=== PATIENT | female | born 1965 | race Asian ===

== ENCOUNTER 2022-09-09 21:14 | Emergency (ER) | payer BC, MEDICAID, SELFPAY ==
[2022-09-09 21:21] VITALS: BP 149/85; PULSE 86; RESP 16; TEMP 37; O2SAT 96
--- NOTE | 2022-09-09 22:14 | XRR_ITS ---
PROCEDURE INFORMATION: Exam: XR Right Foot Exam date and time: 09/09/2022 10:17 PM Age: 57 years old Clinical indication: Pain; Foot; Right; Additional info: Fourth toe pain and swelling TECHNIQUE: Imaging protocol: Radiologic exam of the right foot. Views: 3 or more views. COMPARISON: No relevant prior studies available. 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 Normal variant. Soft tissues: Normal. XR/XR foot RT min 3V* [id number] IMPRESSION: No acute findings.
--- NOTE | 2022-09-09 22:45 | W.ED.EXTPRO ---
HPI - Extremity Problem General: Chief complaint: Extremity Injury, Lower Stated complaint: Right pinky toe pain Time Seen by Provider: 09/09/22 22:13 History of Present Illness: Patient is a 57-year-old female that comes to the ED with right fourth toe pain and swelling. Symptoms started yesterday. Patient denies any injury to right foot or toe. She states that toe is very painful and she rates it a 9 out of 10. The pain radiates up her leg. Pain worsens with any pressure to toe. Denies any history of gout. Associated symptoms: Deny chest pain, fever(s) or rash Review of Systems Const: Denies: fever(s), chills or fatigue Eyes: Denies: change in vision or eye discomfort ENMT: Denies: throat pain, odynophagia, nasal discharge or nasal congestion Card: Denies: chest pain, palpitations, edema, swelling of feet/ankles, dyspnea on exertion or orthopnea Resp: Denies: dyspnea, productive cough or non-productive cough GI: Denies: abdominal pain, nausea, vomiting, diarrhea, constipation or hematochezia : Denies: flank pain, dysuria or hematuria Musc: Reports: extremity pain (Fourth toe right foot) and extremity swelling (Fourth toe right foot); Denies: neck pain or back pain Skin/Breast: Denies: rash or new lesions Neuro: Denies: headache(s), numbness in extremities or weakness in extremities PFS ED PFSH: Medical History (Updated 09/09/22 @ 23:16 by SALLY Rodriguez) Essential hypertension Surgical History (Updated 04/20/22 @ 08:52 by Donald Fajardo NP) Hx of section Family History (Updated 04/20/22 @ 08:53 by Donald Fajardo NP) Sister Stroke Father Gout Denies family history of Diabetes Hypertension Social History (Updated 04/20/22 @ 08:53 by Donald Fajardo NP) Smoking and tobacco status: never smoked Alcohol intake: never Physical Exam Const: COMMON NORMALS: no acute distress, patient oriented x3, healthy appearing and alert HENMT: COMMON NORMALS: normocephalic HEAD & SCALP: normocephalic MOUTH: Normal oral and palatal mucosa present THROAT: posterior oropharynx normal and uvula midline Neck/C-Spine: COMMON NORMALS: supple GENERAL: Yes normal visual inspection Resp: COMMON NORMALS: normal respiratory effort, No retractions, No use of accessory muscles and clear to auscultation bilaterally AUSCULTATION: clear to auscultation bilaterally Cardio: COMMON NORMALS: regular rate, regular rhythm, S1 normal heart sound present, S2 normal heart sound present, No gallops present (Cardio), No clicks present (Cardio), No murmurs present (Cardio) and Peripheral pulses 2+ throughout RATE: regular rate RHYTHM: regular rhythm HEART SOUNDS: S1 normal heart sound present and S2 normal heart sound present PERIPHERAL PULSES: Peripheral pulses 2+ throughout GI: COMMON NORMALS: Normal to inspection, nondistended, normoactive bowel sounds present, Soft to palpation, non-tender and no masses PALPATION: Yes Soft to palpation : COMMON NORMALS: Yes no CVA tenderness BLADDER/KIDNEY EXAM: Yes no CVA tenderness Back/Pelvis: COMMON NORMALS: no CVA tenderness Extremity: NARRATIVE EXTREMITY EXAM: Right foot?fourth toe?erythema warmth and swelling noted toe is very tender to palpation and even to light palpation. She does have some range of motion to toe but it is limited due to pain. Nail and nailbed appear normal and undamaged. No erythema or warmth seen into the foot or streaking up the leg. Findings suggestive of gout. GENERAL: Yes normal exam except as noted Neuro: COMMON NORMALS: patient oriented x3 SENSORIUM/ORIENTATION: Yes alert GAIT: Yes Normal gait present Skin: GENERAL SKIN EXAM: dry skin Course Vital Signs: Vital signs: Vital Signs Temperature 98.6 F 09/09/22 21:21 Pulse Rate 67 09/10/22 00:03 Respiratory Rate 18 09/10/22 00:03 Blood Pressure 150/89 09/10/22 00:03 Pulse Oximetry 96 09/10/22 00:03 Oxygen Delivery Me thod Room Air 09/09/22 22:58 MDM - Extremity (Nontraumatic) Medical Decision Making Patient is a 57-year-old female that comes to the ED with right fourth toe pain and swelling. Symptoms started yesterday. Patient denies any injury to right foot or toe. She states that toe is very painful and she rates it a 9 out of 10. The pain radiates up her leg. Pain worsens with any pressure to toe. Denies any history of gout. Right foot?fourth toe?erythema warmth and swelling noted toe is very tender to palpation and even to light palpation. She does have some range of motion to toe but it is limited due to pain. Nail and nailbed appear normal and undamaged. No erythema or warmth seen into the foot or streaking up the leg. Findings suggestive of gout. X-ray of right foot showed no acute findings. Patient was given a dose of hydrocodone, colchicine and Toradol here in the ED. She was stable for discharge home and diagnosed with gout. Patient was sent home with extra dose of colchicine and told to take it an hour after her first dose here in the ED. She was also sent home with a prescription for indomethacin, Medrol Dosepak and hydrocodone. She was also sent home with a prescription for antibiotic for possible secondary infection/cellulitis. Follow-up with PCP in the next week for reevaluation. Return to ED precautions given. Patient understood and agreed with plan. Lab Data Radiology Impressions Foot X-Ray 09/09/22 22:14 IMPRESSION: No acute findings. Discharge Plan Discharge Patient Disposition: Home Clinical Impression: Gout Qualifiers: Gout site: toe Gout etiology: unspecified cause Chronicity: acute Laterality: right Qualified Code(s): M10.9 - Gout, unspecified Condition: Stable Prescriptions: New indomethacin 50 mg capsule 50 mg PO TID PRN (Reason: pain) Qty: 30 0RF Rx Instructions: administer with food or milk cephalexin 500 mg capsule 500 mg PO Q6H 7 Days Qty: 28 0RF Medrol (Stefan) 4 mg tablets,dose pack See Rx Instructions .ROUTE .COMPLEX Qty: 21 0RF Rx Instructions: orally per package directions No Action hydrochlorothiazide 25 mg tablet 25 mg PO DAILY Qty: 90 3RF lisinopril 10 mg tablet 10 mg PO DAILY Qty: 90 3RF Discharge Orders: Discharge ED (Routine); Ordered 09/09/22 Ordered By: Cristi Wright Referrals: Donald Fajardo NP [Primary Care Provider] - Discharge Diet: Regular Discharge Activity: Increase activity as tolerated Patient Instructions: Gout (ED), Opioid Safety Activity Restrictions/Additional Instructions: Follow-up with medical provider as directed in the next 5 to 7 days for reevaluation. Take your second dose of colchicine at home an hour after your initial dose here in the ED. Take medications as prescribed. Return to the ER or your medical provider if condition worsens. Please read and understand discharge instructions. Thank you for choosing [facility] for your healthcare needs today. Please realize this is an emergency room and that we are providing you with a medical screening exam and this may not be complete and all inclusive of all the testing and or work up that you may need to determine your ailment or severity of your illness. It is very important that you follow up as instructed or that you return to the Emergency Department should you have concerns or if your condition changes or worsens in any way. Coding Level of Care Code ED Movie Star for Lisha Luong
[2022-09-09 22:58] VITALS: BP 153/96; PULSE 72; RESP 18; O2SAT 98
[2022-09-09] MEDS: HYDROcodone-acetaminophen 5-325 mg Tablet 1 TAB PO (22:58)
[2022-09-09] MEDS: colchicine 0.6 mg Tablet 1.2 MG PO (23:21)
[2022-09-09] MEDS: ketorolac 60 mg/2 mL INJ IM (23:52)
[2022-09-10] MEDS: HYDROcodone-acetaminophen 5-325 mg Tablet 1 TAB PO
[2022-09-10] MEDS: colchicine 0.6 mg Tablet PO
[2022-09-10 00:03] VITALS: BP 150/89; PULSE 67; RESP 18; O2SAT 96
== END 2022-09-10 00:06 | disposition home or self-care (01) ==
PROVIDERS: Emergency Provider Physician Assistant; PCP Clinical Nurse Specialist Adult Health
DX: M10.9 Gout, unspecified (principal); I10 Essential (primary) hypertension
CPT/HCPCS: 73630; 96372; 99284; J1885

== ENCOUNTER → 2022-10-22 08:19 | Outpatient (BNVA) | payer BC, MEDICAID, SELFPAY | PROVIDERS: PCP Clinical Nurse Specialist Adult Health; Visit Provider Clinical Nurse Specialist Adult Health | DX: I10 Essential (primary) hypertension (principal) | CPT/HCPCS: 80048; 84550 ==

== ENCOUNTER 2024-05-25 08:04 | Outpatient (CLI) | payer BC, MEDICAID, SELFPAY ==
--- NOTE | 2024-05-25 08:13 | MM_ITS ---
WS: [id number] BILATERAL SCREENING DIGITAL TOMOSYNTHESIS MAMMOGRAM WITH CAD HISTORY: SCREENING COMPARISON: 07/11/2015 Bilateral CC and MLO views with tomosynthesis and synthetic mammography submitted. Computer aided detection analyzed. Breast composition: There are scattered areas of fibroglandular density. No suspicious masses, microcalcifications or architectural distortion. Benign coarse calcification anterior LEFT breast. MM/MM scr BI tomosynthesis [id number] IMPRESSION: BI-RADS: 2 - Benign. FOLLOW UP: 1 Year Follow-up
== END 2024-05-25 08:05 | disposition home or self-care (01) ==
LOC: RAD 08:08
PROVIDERS: PCP Clinical Nurse Specialist Adult Health; Visit Provider Advanced Practice Midwife
DX: Z12.31 Encounter for screening mammogram for malignant neoplasm of breast (principal); R92.323 Mammographic fibroglandular density, bilateral breasts; R92.1 Mammographic calcification found on diagnostic imaging of breast
CPT/HCPCS: 77063; 77067